=== PATIENT | male | born 1990 | race Caucasian/White ===

== ENCOUNTER 2017-11-12 09:54 | Emergency (ER) | payer OTHER ==
[2017-11-12] MEDS: IBUPROFEN 800 MG TAB PO (11:15)
== END 2017-11-12 12:02 | disposition home or self-care (01) ==
LOC: FTE 09:54
DX: M25.511 Pain in right shoulder (principal); M54.5 Low back pain; R51 Headache; R07.89 Other chest pain; Z72.89 Other problems related to lifestyle
CPT/HCPCS: 70486; 71045; 72100; 73030-RT; 99285-25